=== PATIENT | female | born 1990 | race American Indian/Alaskan Native ===

== ENCOUNTER 2016-10-30 19:41 | Emergency (ER) | payer SELFPAY ==
[2016-10-30 21:11] LABS: Basophils % (Auto) 0.4 % (0.0-1.8); Eosinophils % (Auto) 3.4 % (0.0-4.3); Hematocrit 33.4 % (30.3-42.9); Mean Corpuscular HGB Conc 33 % (30-34); Mean Corpuscular Hemoglobin 28 pg (28-32); Mean Corpuscular Volume 86 fl (79-97); Platelet Count 202 K/mm3 (140-440); Red Blood Count 3.88 M/mm3 (3.65-5.03); Red Cell Distribution Width 13.2 % (13.2-15.2); White Blood Count 8.1 K/mm3 (4.5-11.0)
[2016-10-30 21:20] LABS: Alanine Aminotransferase 26 units/L (7-56); Albumin 4.2 g/dL (3.9-5); Albumin/Globulin Ratio 1.4 %; Alkaline Phosphatase 51 units/L (35-129); Anion Gap 16 mmol/L; BUN/Creatinine Ratio 16.66; Bilirubin,Total 0.4 mg/dL (0.1-1.2); Blood Urea Nitrogen 10 mg/dL (7-17); Carbon Dioxide 25 mmol/L (22-30); Chloride 102.1 mmol/L (98-107); Glucose 91 mg/dL (65-100); Lipase 132 units/L (13-60); Potassium 3.9 mmol/L (3.6-5.0); Sodium 139 mmol/L (137-145); Total Protein 7.1 g/dL (6.3-8.2)
[2016-10-30 21:28] LABS: Bacteria,Urine 1+ /HPF (Negative); Bilirubin,Urine NEG (Negative); Blood,Urine NEG (Negative); Ketones,Urine TR mg/dL (Negative); Leukocyte Esterase,Urine TR (Negative); Mucus,Urine FEW /HPF; Nitrite,Urine NEG (Negative); Protein,Urine <15 mg/dL mg/dL (Negative)
--- NOTE | 2016-10-31 02:41 | Emergency Department Report ---
HPI - General Chief Complaint: Abdominal Pain Time Seen by Provider: 10/31/16 01:49 - HPI HPI: Room 26 The patient is a 26-year-old female presenting with a chief complaint lower abdominal pain. The patient states for approximately one week she's had nausea vomiting and vaginal discharge that has been brown and green in color. Patient denies diarrhea. The patient states her lower abdominal pain has been intermittent for the past 3 days. Patient denies any history of fever Location: Vagina Duration: One week Quality: Discharge Severity: Moderate Modifying factors: [see above] Context: [see above] Mode of transportation: Unknown ED Past Medical Hx - Past Medical History Hx Asthma: Yes - Surgical History Past Surgical History?: No Additional Surgical History: ectopic ,right side tube removed - Family History Family history: no significant - Social History Smoking Status: Current Every Day Smoker (1/4 pack per day) Substance Use Type: None (denies illicit drug use), Alcohol (occasional) - Medications Home Medications: Home Medications Medication Instructions Recorded Confirmed Last Taken Type Ondansetron [Zofran TAB] 8 mg PO Q8HR PRN #20 tablet 10/31/16 Unknown Rx traMADol [Ultram] 50 mg PO Q6HR PRN #10 tablet 10/31/16 Unknown Rx ED Review of Systems ROS: Stated complaint: NAUSEA, DISCHARGE,STOMACH PAIN Other details as noted in HPI Comment: All other systems reviewed and negative Constitutional: denies: chills, fever Eyes: denies: eye pain, eye discharge, vision change ENT: denies: ear pain, throat pain Respiratory: denies: cough, shortness of breath, wheezing Cardiovascular: denies: chest pain, palpitations Endocrine: no symptoms reported Gastrointestinal: denies: abdominal pain, nausea, diarrhea Genitourinary: denies: urgency, dysuria, discharge Musculoskeletal: denies: back pain, joint swelling, arthralgia Skin: denies: rash, lesions Neurological: denies: headache, weakness, paresthesias Psychiatric: denies: anxiety, depression Hematological/Lymphatic: denies: easy bleeding, easy bruising Physical Exam - Physical Exam Vital Signs: Vital Signs 10/30/16 10/31/16 10/31/16 20:18 00:50 02:22 Temperature 98.3 F Pulse Rate 71 72 72 Respiratory 18 18 18 Rate Blood Pressure 134/86 Blood Pressure 136/84 132/70 [Left] O2 Sat by Pulse 100 99 99 Oximetry Physical Exam: GENERAL: The patient is well-developed well-nourished female lying on stretcher not appearing to be in acute distress. [] HEENT: Normocephalic. Atraumatic. Extraocular motions are intact. Patient has moist mucous membranes. NECK: Supple. No meningitic signs are noted. There is no adenopathy noted. CHEST/LUNGS: Clear to auscultation. There is no respiratory distress noted. HEART/CARDIOVASCULAR: Regular. There is no tachycardia. There is no gallop rub or murmur. ABDOMEN: Abdomen is soft, nontender. Patient has normal bowel sounds. There is no abdominal distention. SKIN: There is no rash. There is no edema. There is no diaphoresis. NEURO: The patient is awake, alert, and oriented. The patient is cooperative. The patient has normal speech MUSCULOSKELETAL: There is no evidence of acute injury. PELVIC: Small to moderate amount of white discharge in vault ED Course Vital Signs 10/30/16 10/31/16 10/31/16 20:18 00:50 02:22 Temperature 98.3 F Pulse Rate 71 72 72 Respiratory 18 18 18 Rate Blood Pressure 134/86 Blood Pressure 136/84 132/70 [Left] O2 Sat by Pulse 100 99 99 Oximetry ED Medical Decision Making - Lab Data Result diagrams: 10/30/16 20:35 10/30/16 20:35 Laboratory Tests 10/30/16 10/30/16 10/30/16 20:35 20:35 21:03 WBC 8.1 RBC 3.88 Hgb 11.0 Hct 33.4 MCV 86 MCH 28 MCHC 33 RDW 13.2 Plt Count 202 Lymph % (Auto) 37.1 H Stevens % (Auto) 9.8 H Eos % (Auto) 3.4 Baso % (Auto) 0.4 Lymph # 3.0 Stevens # 0.8 Eos # 0.3 Baso # 0.0 Seg Neutrophils % 49.3 Seg Neutrophils # 4.0 Sodium 139 Potassium 3.9 Chloride 102.1 Carbon Dioxide 25 Anion Gap 16 BUN 10 Creatinine 0.6 L Estimated GFR > 60 BUN/Creatinine Ratio 16.66 Glucose 91 Calcium 9.0 Total Bilirubin 0.4 AST 21 ALT 26 Alkaline Phosphatase 51 Total Protein 7.1 Albumin 4.2 Albumin/Globulin Ratio 1.4 Lipase 132 H Urine Color Yellow Urine Turbidity Slightly-cloudy Urine pH 6.0 Ur Specific [place] 1.026 Urine Protein <15 mg/dl Urine Glucose (UA) Neg Urine Ketones Tr Urine Blood Neg Urine Nitrite Neg Urine Bilirubin Neg Urine Urobilinogen 4.0 Ur Leukocyte Esterase Tr Urine WBC (Auto) 3.0 Urine RBC (Auto) 1.0 U Epithel Cells (Auto) 44.0 H Urine Bacteria (Auto) 1+ Urine Mucus Few Urine HCG, Qual Negative Wet prep-less than 20% clue cells, Trichomonas or yeast - Differential Diagnosis urethritis, UTI, vaginitis, bacterial vaginosis Critical care attestation.: If time is entered above; I have spent that time in minutes in the direct care of this critically ill patient, excluding procedure time. ED Disposition Clinical Impression: Vaginal discharge, Nausea & vomiting Disposition: DISCHARGED TO HOME OR SELFCARE Is pt being admited?: No Does the pt Need Aspirin: No Condition: Stable Instructions: Abdominal Pain (ED) Additional Instructions: Return to the emergency department immediately should you develop worsening symptoms, fever, inability to tolerate food or liquid or any other concerns. Prescriptions: Ondansetron [Zofran TAB] 8 mg PO Q8HR PRN #20 tablet PRN Reason: Nausea traMADol [Ultram] 50 mg PO Q6HR PRN #10 tablet PRN Reason: Pain Referrals: PRIMARY CARE, [Primary Care Provider] - 3-5 Days Time of Disposition: 03:17
[2016-10-31] MEDS ORDERED: XYLOCAINE 1% MPF 5 mL INFILTRATI ONE (03:08)
[2016-10-31] MEDS ORDERED: ROCEPHIN IM ONE (03:08)
[2016-10-31] MEDS ORDERED: ZITHROMAX PO ONE (03:08)
[2016-10-31 04:20] VITALS: BP 128/74
== END 2016-10-31 04:20 | disposition home or self-care (01) ==
LOC: ED 19:41
DX: N89.8 Other specified noninflammatory disorders of vagina (principal); R11.2 Nausea with vomiting, unspecified; J45.909 Unspecified asthma, uncomplicated; F17.200 Nicotine dependence, unspecified, uncomplicated
CPT/HCPCS: 36415; 80053; 81001; 81025; 83690; 85025; 87210; 87591; 96372; 99284; J0696